=== PATIENT | male | born 1975 ===

== ENCOUNTER 2017-11-20 09:44 | Observation (INO) | payer BC ==
[2017-11-20] MEDS ORDERED: Iohexol 240 (50 ml) PO ONE (10:21)
[2017-11-20] MEDS ORDERED: Sodium Chloride 0.9% 1,000 ML IV STA (10:22)
[2017-11-20] MEDS ORDERED: Iohexol 240 (50 ml) ONE (10:33)
--- NOTE | 2017-11-20 10:58 | ED PDOC ---
HPI: Abdomen Time Seen by Provider: 11/20/17 10:15 Chief Complaint (Nursing): Abdominal Pain Chief Complaint (Provider): abdominal pain nausea diarrhea History Per: Patient History/Exam Limitations: no limitations Onset/Duration Of Symptoms: Days (3) Current Symptoms Are (Timing): Still Present Location Of Pain/Discomfort: Diffuse Quality Of Discomfort: Sharp Associated Symptoms: Nausea, Vomiting, Diarrhea, Loss Of Appetite Exacerbating Factors: None Alleviating Factors: None Last Bowel Movement: Today Additional Complaint(s): 42yo male history significant for familial mediterreran fever, presents w return of abdominal pain sharp, diffuse associated a nausea and diarrhea ongoing for 3 days. Denies recent attack of FMF, was supposed to be taking colchicine but admits noncompliance- has full bottle of pills with him filled jun 2016. Denies BRBPR or hematemesis. PMD- denies having current PMD Past Medical History Reviewed: Historical Data, Nursing Documentation, Vital Signs Vital Signs: Last Vital Signs Temp 99.1 F 11/22/17 08:30 Pulse 71 11/22/17 08:30 Resp 20 11/22/17 08:30 BP 123/81 11/22/17 08:30 Pulse Ox 100 11/22/17 08:30 - Medical History Other PMH: FMF - Surgical History Surgical History: Appendectomy, Endoscopy (x2) Other surgeries: partial small bowel resection and several diagnostic laproscopies - Family History Family History: States: Unknown Family Hx - Social History Current smoker - smoking cessation education provided: Yes Alcohol: Social Drugs: Denies - Home Medications Home Medications: Ambulatory Orders Medication Instructions Recorded Colchicine [Mitigare] 0.6 mg PO Q12 #30 capsule 11/22/17 Dicyclomine [Bentyl] 10 mg PO QID PRN #20 cap 11/22/17 Famotidine [Pepcid] 20 mg PO BID #60 tab 11/22/17 Ondansetron ODT [Zofran ODT] 4 mg PO Q8H PRN #20 odt 11/22/17 - Allergies Allergies/Adverse Reactions: Allergies Allergy/AdvReac Type Severity Reaction Status Date / Time No Known Allergies Allergy Verified 03/12/16 15:24 Review of Systems ROS Statement: Except As Marked, All Systems Reviewed And Found Negative Constitutional: Negative for: Fever Cardiovascular: Negative for: Chest Pain Respiratory: Negative for: Cough, Shortness of Breath Gastrointestinal: Positive for: Nausea, Vomiting, Abdominal Pain, Diarrhea Genitourinary Male: Negative for: Dysuria Musculoskeletal: Negative for: Neck Pain Skin: Negative for: Rash, Lesions Neurological: Positive for: Headache, Dizziness. Negative for: Weakness Psych: Negative for: Suicidal ideation Physical Exam - Reviewed Nursing Documentation Reviewed: Yes Vital Signs Reviewed: Yes - Physical Exam Appears: Positive for: Non-toxic, Uncomfortable Head Exam: Positive for: ATRAUMATIC, NORMAL INSPECTION, NORMOCEPHALIC Skin: Positive for: Normal Color, Warm, DRY Eye Exam: Positive for: EOMI, Normal appearance, PERRL ENT: Positive for: Normal ENT Inspection Neck: Positive for: Normal, Painless ROM Cardiovascular/Chest: Positive for: Regular Rate, Rhythm Respiratory: Positive for: CNT, Normal Breath Sounds Gastrointestinal/Abdominal: Positive for: Soft, Tenderness (diffuse tenderness inferior midline incisional scar), Guarding Back: Positive for: Normal Inspection Extremity: Positive for: Normal ROM Neurologic/Psych: Positive for: Alert, Oriented. Negative for: Motor/Sensory Deficits - Laboratory Results Result Diagrams: 11/22/17 06:42 11/22/17 06:42 - ECG O2 Sat by Pulse Oximetry: 100 Medical Decision Making Medical Decision Making: workup for acute abdomen / SBO vs return of FMF labs, CT abd pelv and IVF, toradol, antiemetic ordered labs reveal elev WBC chem unremarkable CT: Accession No. : [id number] Patient Name / ID : ISHA ESPARZA / [id number] Exam Date : 11/20/2017 13:54:44 ( Approved ) Study Comment : Sex / Age : M / 42Y Creator : Sumi Smalls Dictator : Sumi Smalls Palletiser Operator : Phlebotomy Technologist : Sumi Smalls Approver2 : Report Date : 11/20/2017 14:45:29 My Comment : PROCEDURE: CT Abdomen and Pelvis with contrast HISTORY: abdominal pain COMPARISON: CT abdomen and pelvis 12/22/2010 images without report available to me at this time TECHNIQUE: Contrast dose: 95 mL Omnipaque 3 high Radiation dose: Total exam DLP = 533 mGy-cm. This CT exam was performed using one or more of the following dose reduction techniques: Automated exposure control, adjustment of the mA and/or kV according to patient size, and/or use of iterative reconstruction technique. FINDINGS: LOWER THORAX: Unremarkable. LIVER: Unremarkable. No gross lesion or ductal dilatation. GALLBLADDER AND BILE DUCTS: Unremarkable. PANCREAS: Unremarkable. No gross lesion or ductal dilatation. SPLEEN: Unremarkable. ADRENALS: Unremarkable. No mass. KIDNEYS AND URETERS: Unremarkable. No hydronephrosis. No solid mass. VASCULATURE: Unremarkable. No aortic aneurysm. BOWEL: Unremarkable. No obstruction. No gross mural thickening. APPENDIX: The appendix is not identify with certainty. No pericecal inflammatory changes noted. There are some right sided punctate calcifications punctate hyperdensity which appear to be similar to those noted on the 2011 study. Some of these may represent phleboliths. No obstructing urolithiasis suggested. PERITONEUM: Unremarkable. No free fluid. No free air. LYMPH NODES: Unremarkable. No enlarged lymph nodes. BLADDER: Unremarkable. REPRODUCTIVE: Unremarkable. BONES: No acute fracture. OTHER FINDINGS: None. IMPRESSION: Nonvisualized appendix. No pericecal inflammatory changes. Correlate clinically. Otherwise unremarkable contrast enhanced CT of the abdomen and pelvis. patient still w discomfort. Place Obs med surg for further workup. Colchicine initiated. Disposition - Clinical Impression Clinical Impression: Abdominal pain, Familial Mediterranean fever - Patient ED Disposition Is Patient to be Admitted: Yes - Disposition Disposition Time: 12:45 Condition: FAIR - Pt Status Changed To: Hospital Disposition Of: Inpatient - Admit Certification Admit to Inpatient:: After my assessment, the patient will require hospitalization for at least two midnights. This is because of the severity of symptoms shown, intensity of services needed, and/or the medical risk in this patient being treated as an outpatient. - POA Present On Arrival: None
[2017-11-20 11:06] LABS: BASO # 0.2 K/uL (0.0-0.2); BASO % 0.8 % (0.0-2.0); EOS # 0.6 K/uL (0.0-0.7); EOS % 3.2 % (0.0-4.0); HEMOGLOBIN 15.9 g/dL (12.0-18.0); LYMPH % 10.4 % (20.0-40.0); MEAN CELL VOLUME 80.5 fl (80.0-94.0); MEAN CORPUSCULAR HGB CONC 33.5 g/dL (33.0-37.0); MONO # 1.4 K/uL (0.0-0.8); MONO % 7.5 % (0.0-10.0); NEUT # 14.7 K/uL (1.8-7.0); NEUT % 78.1 % (50.0-75.0); RBC 5.89 Mil/uL (4.40-5.90); RED CELL DISTRIBUTION WIDTH 13.9 % (11.5-14.5); WHITE BLOOD COUNT 18.9 K/uL (4.8-10.8)
[2017-11-20 11:15] LABS: INR 1.1 (0.9-1.2); PROTHROMBIN TIME 11.7 Seconds (9.8-13.1); SQUAMOUS EPITHIAL < 1 /hpf (0-5); URINE BILIRUBIN NEGATIVE (NEGATIVE); URINE BLOOD SMALL (NEGATIVE); URINE CLARITY SLIGHTY-CLOUDY (Clear); URINE COLOR YELLOW (YELLOW); URINE GLUCOSE (UA) NEG (Normal); URINE LEUKOCYTE ESTERASE NEG Leu/uL (Negative); URINE PROTEIN 30 mg/dL (NEGATIVE); URINE UROBILINOGEN 0.2-1.0 mg/dL (0.2-1.0)
[2017-11-20 11:19] LABS: ALBUMIN 4.1 g/dL (3.5-5.0); ALT/SGPT 30 U/L (21-72); AST/SGOT 28 U/L (17-59); BLOOD UREA NITROGEN 11 mg/dl (9-20); CALCIUM 9.1 mg/dL (8.4-10.2); GFR AFRICAN-AMERICAN > 60; GFR NON-AFRICAN AMERICAN > 60; LIPASE 41 U/L (23-300); URIC ACID 6.2 mg/Dl (3.5-8.5)
[2017-11-20] MEDS ORDERED: Morphine 4 MG/ML VIAL ONE (12:22)
[2017-11-20] MEDS ORDERED: Morphine 4 MG/ML VIAL IV STA (12:23)
--- NOTE | 2017-11-20 12:36 | RAD ---
HISTORY: SOB COMPARISON: No prior. FINDINGS: LUNGS: No active pulmonary disease. PLEURA: No significant pleural effusion identified, no pneumothorax apparent. CARDIOVASCULAR: Normal. OSSEOUS STRUCTURES: No significant abnormalities. VISUALIZED UPPER ABDOMEN: Normal. OTHER FINDINGS: None. IMPRESSION: No active disease.
[2017-11-20] MEDS ORDERED: Iohexol 300 100 ML IJ ONE (13:49)
[2017-11-20] MEDS ORDERED: Sodium Chloride 0.9% 50 ML IV ONE (13:50)
--- NOTE | 2017-11-20 14:47 | CT ---
PROCEDURE: CT Abdomen and Pelvis with contrast HISTORY: abdominal pain COMPARISON: CT abdomen and pelvis 12/22/2010 images without report available to me at this time TECHNIQUE: Contrast dose: 95 mL Omnipaque 3 high Radiation dose: Total exam DLP = 533 mGy-cm. This CT exam was performed using one or more of the following dose reduction techniques: Automated exposure control, adjustment of the mA and/or kV according to patient size, and/or use of iterative reconstruction technique. FINDINGS: LOWER THORAX: Unremarkable. LIVER: Unremarkable. No gross lesion or ductal dilatation. GALLBLADDER AND BILE DUCTS: Unremarkable. PANCREAS: Unremarkable. No gross lesion or ductal dilatation. SPLEEN: Unremarkable. ADRENALS: Unremarkable. No mass. KIDNEYS AND URETERS: Unremarkable. No hydronephrosis. No solid mass. VASCULATURE: Unremarkable. No aortic aneurysm. BOWEL: Unremarkable. No obstruction. No gross mural thickening. APPENDIX: The appendix is not identify with certainty. No pericecal inflammatory changes noted. There are some right sided punctate calcifications punctate hyperdensity which appear to be similar to those noted on the 2011 study. Some of these may represent phleboliths. No obstructing urolithiasis suggested. PERITONEUM: Unremarkable. No free fluid. No free air. LYMPH NODES: Unremarkable. No enlarged lymph nodes. BLADDER: Unremarkable. REPRODUCTIVE: Unremarkable. BONES: No acute fracture. OTHER FINDINGS: None. IMPRESSION: Nonvisualized appendix. No pericecal inflammatory changes. Correlate clinically. Otherwise unremarkable contrast enhanced CT of the abdomen and pelvis.
[2017-11-20] MEDS ORDERED: COLCHICINE 0.6 MG CAPSULE PO ONE (14:56)
--- NOTE | 2017-11-20 15:55 | CP.PCM.HP ---
History of Present Illness - History of Present Illness History of Present Illness: 42 yr old M presented to ED with complaint of worsening severe abdominal pain x 3 days. Associated symptoms are nausea and diarrhea. PMHx includes Familial Mediterranean Fever with last exacerbation 2 yrs ago. Denies fevers, vomiting, chills, SOB, weakness, dizziness. Patient reports he has not been compliant with his Colchicine 0.6mg PO BID, he does not have a PMD and has not followed up with GI. Reports he last saw a physician assigned to him at his job fro right shoulder injury (workers comp). PMD: none Specialists: none PMHx: Familial Mediterranean Fever s/p colon resection SurgHx: colon resection, several diagnostic laparoscopies, appendectomy, right shoulder labrum repair/arthroscopy FMHx: mother at 48 yrs old from stomach cancer, father hx unknown SocHx: tobacco use 10 cig daily x 17 yrs, occasional Etoh, denies drugs Medications: noncompliant with colchicine 0.6mg PO BID Allergies: NKDA ED course: BP 131/81 mmHg, HR 75 bpm, Resp 20, O2 sat 100% on room air, Temp 98.1 F -CXR: no active disease -CT Abd/pelvis: Nonvisualized appendix, no pericecal inflammatory changes, unremarkable. -CBC: WBC 18.9, H/H 15.9/47.4, plts 236, no left shift -PT 11.7, PTT 42, INR 1.1, -CMP Na 142, K+ 4.4, Cl 106, HCO3 26, anion gap 14, BUN 11, Cr 1.3 -AST 28, ALT 30, lipase 41 -urinalysis: small blood -Urine toxicology positive for opiates -ED treatment: Dilaudid 0.5mg IVP once, Toradol 15 mg IVP once, Morphine 4mg IVP once, Morphine 2mg IVP once, 1L NS bolus, Zofran 4mg IV once Present on Admission - Present on Admission Any Indicators Present on Admission: No History of DVT/PE: No History of Uncontrolled Diabetes: No Urinary Catheter: No Decubitus Ulcer Present: No History Surgical Site Infection Following: None Review of Systems - Constitutional Constitutional: absent: Chills, Weakness - EENT Eyes: absent: Change in Vision Nose/Mouth/Throat: absent: Sore Throat - Cardiovascular Cardiovascular: absent: Chest Pain, Dyspnea - Respiratory Respiratory: absent: Cough, Dyspnea, Hemoptysis - Gastrointestinal Gastrointestinal: Abdominal Pain (diffuse), Diarrhea, Nausea, Vomiting - Genitourinary Genitourinary: absent: Difficulty Urinating, Dysuria - Musculoskeletal Musculoskeletal: absent: Muscle Weakness - Neurological Neurological: absent: Confusion, Weakness - Endocrine Endocrine: absent: Fatigue, Polydipsia, Polyphagia, Polyuria - Hematologic/Lymphatic Hematologic: absent: Easy Bleeding, Easy Bruising Past Patient History - Past Social History Alcohol: Social Drugs: Denies - ENDOCRINE/METABOLIC Hx Endocrine Disorders: Yes Other/Comment: Familial mediterranean fever - GASTROINTESTINAL Other/Comment: Partial colonectomy - PSYCHIATRIC Hx Substance Use: No - SURGICAL HISTORY Hx Appendectomy: Yes - ANESTHESIA Hx Anesthesia: Yes Hx Anesthesia Reactions: No Meds Allergies/Adverse Reactions: Allergies Allergy/AdvReac Type Severity Reaction Status Date / Time No Known Allergies Allergy Verified 03/12/16 15:24 Physical Exam - Constitutional Appears: No Acute Distress - Eye Exam Eye Exam: EOMI, PERRL - ENT Exam ENT Exam: Mucous Membranes Moist - Neck Exam Neck exam: Positive for: Full Rom. Negative for: Lymphadenopathy - Respiratory Exam Respiratory Exam: Clear to Auscultation Bilateral, NORMAL BREATHING PATTERN - Cardiovascular Exam Cardiovascular Exam: REGULAR RHYTHM, +S1, +S2 - GI/Abdominal Exam GI & Abdominal Exam: Normal Bowel Sounds, Soft, Tenderness (diffuse) - Extremities Exam Extremities exam: Positive for: full ROM. Negative for: pedal edema - Back Exam Back exam: absent: CVA tenderness (L), CVA tenderness (R) - Neurological Exam Neurological exam: Alert, CN II-XII Intact (grossly intact), Oriented x3 - Psychiatric Exam Psychiatric exam: Normal Affect, Normal Mood - Skin Skin Exam: Dry, Normal Color, Warm Results - Vital Signs Recent Vital Signs: Last Vital Signs Temp 98.1 F 11/20/17 09:51 Pulse 75 11/20/17 09:51 Resp 20 11/20/17 09:51 BP 131/81 11/20/17 09:51 Pulse Ox 100 11/20/17 14:59 - Labs Result Diagrams: 11/20/17 11:02 11/20/17 11:02 Labs: Laboratory Results - last 24 hr 11/20/17 11/20/17 11/20/17 11:02 11:02 11:02 WBC 18.9 H RBC 5.89 Hgb 15.9 Hct 47.4 MCV 80.5 MCH 27.0 MCHC 33.5 RDW 13.9 Plt Count 236 MPV 10.0 Neut % (Auto) 78.1 H Lymph % (Auto) 10.4 L Ness % (Auto) 7.5 Eos % (Auto) 3.2 Baso % (Auto) 0.8 Neut # (Auto) 14.7 H Lymph # (Auto) 2.0 Ness # (Auto) 1.4 H Eos # (Auto) 0.6 Baso # (Auto) 0.2 PT 11.7 INR 1.1 APTT 42.0 H Sodium 142 Potassium 4.4 Chloride 106 Carbon Dioxide 26 Anion Gap 14 BUN 11 Creatinine 1.3 Est GFR ( Amer) > 60 Est GFR (Non-Af Amer) > 60 Random Glucose 111 H Uric Acid 6.2 Calcium 9.1 Total Bilirubin 0.8 AST 28 ALT 30 Alkaline Phosphatase 77 Total Protein 8.1 Albumin 4.1 Globulin 4.0 H Albumin/Globulin Ratio 1.0 Lipase 41 Urine Color Urine Clarity Urine pH Ur Specific [place] Urine Protein Urine Glucose (UA) Urine Ketones Urine Blood Urine Nitrate Urine Bilirubin Urine Urobilinogen Ur Leukocyte Esterase Urine RBC (Auto) Urine Microscopic WBC Ur Squamous Epith Cells 11/20/17 11:02 WBC RBC Hgb Hct MCV MCH MCHC RDW Plt Count MPV Neut % (Auto) Lymph % (Auto) Ness % (Auto) Eos % (Auto) Baso % (Auto) Neut # (Auto) Lymph # (Auto) Ness # (Auto) Eos # (Auto) Baso # (Auto) PT INR APTT Sodium Potassium Chloride Carbon Dioxide Anion Gap BUN Creatinine Est GFR ( Amer) Est GFR (Non-Af Amer) Random Glucose Uric Acid Calcium Total Bilirubin AST ALT Alkaline Phosphatase Total Protein Albumin Globulin Albumin/Globulin Ratio Lipase Urine Color Yellow Urine Clarity Slighty-cloudy Urine pH 5.0 Ur Specific [place] 1.030 Urine Protein 30 Urine Glucose (UA) Neg Urine Ketones Negative Urine Blood Small Urine Nitrate Negative Urine Bilirubin Negative Urine Urobilinogen 0.2-1.0 Ur Leukocyte Esterase Neg Urine RBC (Auto) 8 H Urine Microscopic WBC 1 Ur Squamous Epith Cells < 1 Assessment & Plan - Assessment and Plan (Free Text) Assessment: 42 yr old M admitted for intractable abdominal pain with PMHx Familial Mediterranean Fever Plan: -Admit to med/surg -pain management -NPO, IV fluids -GI consult: Dr. Feliciano, will follow recommendations -Zofran PRN -Lovenox 40mg SC QD -Colchicine 0.6mg PO Q12 -Pantoprazole 40 mg PO QD - Date & Time Date: 11/20/17 Time: 15:55
[2017-11-20] MEDS ORDERED: HYDROmorphone 0.5 mg/0.5 ml ISec IVP STA (17:13)
[2017-11-20] MEDS ORDERED: HYDROmorphone 0.5 mg/0.5 ml ISec ONE (17:32)
[2017-11-20] MEDS: Dextrose 5%/0.45% NS 1,000 ML IV SCH (17:33)
[2017-11-20] MEDS ORDERED: Pneumococcal 23-Valent Vaccine IM ONE (20:00)
[2017-11-21] MEDS: Dextrose 5%/0.45% NS 1,000 ML IV SCH ×3 (04:38→20:29)
[2017-11-21 06:57] LABS: BENZODIAZEPINES, UR NEGATIVE (NEGATIVE); OPIATES, UR POSITIVE (NEGATIVE); PHENCYCLIDINE, UR NEGATIVE (NEGATIVE)
[2017-11-21 07:13] LABS: BARBITURATES, UR NEGATIVE (NEGATIVE)
[2017-11-21] MEDS: Pantoprazole 40 mg EC Tab PO SCH (08:53)
[2017-11-21] MEDS: Enoxaparin 40 mg Syringe SC SCH (08:53)
[2017-11-21] MEDS ORDERED: COLCHICINE 0.6 MG CAPSULE PO SCH (10:15)
--- NOTE | 2017-11-21 11:08 | CP.PCM.PN ---
Subjective - Date & Time of Evaluation Date of Evaluation: 11/21/17 Time of Evaluation: 08:10 - Subjective Subjective: Patient seen and examined at bedside with Dr. Gonzalez. Reports abdominal pain persists, has an appetite. Denies fevers/chills/nausea/vomiting or diarrhea. Objective - Vital Signs/Intake and Output Vital Signs (last 24 hours): Temp Pulse Resp BP Pulse Ox 98.5 F 68 20 122/78 99 11/21/17 08:49 11/21/17 08:49 11/21/17 08:49 11/21/17 08:49 11/21/17 08:49 - Medications Medications: Current Medications Acetaminophen (Tylenol 325mg Tab) 975 mg PO Q6 PRN PRN Reason: Pain, moderate (4-7) Colchicine (Colchicine) 0.6 mg PO Q12 ODALIS Enoxaparin Sodium (Lovenox) 40 mg SC DAILY ODALIS PRN Reason: Protocol Last Admin: 11/21/17 08:53 Dose: 40 mg Dextrose/Sodium Chloride (Dextrose 5%/0.45% Ns 1000 Ml) 1,000 mls @ 100 mls/hr IV .Q10H ODALIS Stop: 11/22/17 10:06 Ketorolac Tromethamine (Toradol) 30 mg IVP Q6 PRN PRN Reason: Pain, severe (8-10) Last Admin: 11/21/17 08:24 Dose: 30 mg Ondansetron HCl (Zofran Odt) 4 mg PO Q8H PRN PRN Reason: Nausea/Vomiting Ondansetron HCl (Zofran Inj) 4 mg IVP Q4 PRN PRN Reason: Nausea/Vomiting Last Admin: 11/21/17 08:23 Dose: 4 mg Pantoprazole Sodium (Protonix Ec Tab) 40 mg PO DAILY [facility] Last Admin: 11/21/17 08:53 Dose: 40 mg - Labs Labs: 11/20/17 11:02 11/20/17 11:02 PT 11.7 Seconds (9.8-13.1) 11/20/17 11:02 INR 1.1 (0.9-1.2) 11/20/17 11:02 APTT 42.0 Seconds (25.6-37.1) H 11/20/17 11:02 - Constitutional Appears: No Acute Distress - Eye Exam Eye Exam: Normal appearance - ENT Exam ENT Exam: Mucous Membranes Moist - Respiratory Exam Respiratory Exam: NORMAL BREATHING PATTERN - Cardiovascular Exam Cardiovascular Exam: REGULAR RHYTHM - GI/Abdominal Exam GI & Abdominal Exam: Normal Bowel Sounds - Neurological Exam Neurological Exam: Alert, Awake, CN II-XII Intact (grossly intact), Oriented x3 - Psychiatric Exam Psychiatric exam: Normal Affect, Normal Mood - Skin Skin Exam: Dry, Warm Assessment and Plan - Assessment and Plan (Free Text) Assessment: 42 yr old M admitted for intractable abdominal pain with PMHx Familial Mediterranean Fever Plan: -continue current management -pain management -liquid diet, advance as tolerated -GI consult: Dr. Feliciano, will follow recommendations -Zofran PRN -Lovenox 40mg SC QD -Colchicine 0.6mg PO Q12 -Pantoprazole 40 mg PO QD
[2017-11-21 11:35] LABS: HEMOGLOBIN 14.5 g/dL (12.0-18.0); MEAN CELL VOLUME 80.3 fl (80.0-94.0); MEAN CORPUSCULAR HEMOGLOBIN 26.5 pg (27.0-31.0); MEAN CORPUSCULAR HGB CONC 32.9 g/dL (33.0-37.0); RBC 5.46 Mil/uL (4.40-5.90); RED CELL DISTRIBUTION WIDTH 14.2 % (11.5-14.5); WHITE BLOOD COUNT 18.4 K/uL (4.8-10.8)
[2017-11-21 11:44] LABS: BLOOD UREA NITROGEN 12 mg/dl (9-20); CALCIUM 8.2 mg/dL (8.4-10.2); GFR AFRICAN-AMERICAN > 60; GFR NON-AFRICAN AMERICAN > 60
[2017-11-21 23:49] VITALS: RESP 20; O2SAT 100
[2017-11-22] MEDS: Dextrose 5%/0.45% NS 1,000 ML IV SCH (03:51)
[2017-11-22 06:59] LABS: HEMOGLOBIN 13.9 g/dL (12.0-18.0); MEAN CELL VOLUME 80.9 fl (80.0-94.0); MEAN CORPUSCULAR HEMOGLOBIN 26.7 pg (27.0-31.0); RBC 5.19 Mil/uL (4.40-5.90); WHITE BLOOD COUNT 15.6 K/uL (4.8-10.8)
[2017-11-22 07:01] LABS: BLOOD UREA NITROGEN 11 mg/dl (9-20); CALCIUM 8.4 mg/dL (8.4-10.2); GFR AFRICAN-AMERICAN > 60; GFR NON-AFRICAN AMERICAN > 60
[2017-11-22] MEDS ORDERED: Metoclopramide 10 mg/10 ml Cup PO ONE (08:16)
[2017-11-22 08:31] VITALS: BP 123/81; PULSE 71; TEMP 99.1
[2017-11-22] MEDS: Pantoprazole 40 mg EC Tab PO SCH (08:31)
[2017-11-22] MEDS: Enoxaparin 40 mg Syringe SC SCH (08:31)
[2017-11-22 12:28] VITALS: BMI 27.8
--- NOTE | 2017-11-22 13:48 | PN ---
DATE: 11/22/2017 SUBJECTIVE: The patient is seen and examined. Interim events noted. Consult noted and appreciated. Gastroenterology interventions noted and appreciated. The patient remains in regular medical floor. The patient still complains of abdominal pain, lot of gas and acidity. PHYSICAL EXAMINATION: GENERAL: The patient is in no acute distress. VITAL SIGNS: Stable. HEART: S1, S2, normal and regular. LUNGS: Good bilateral air exchange. ABDOMEN: Soft and nontender. Abdominal exam does not reveal any sign of acute abdomen. No guarding, no rigidity, no rebound. Bowel sounds are plus and normal. EXTREMITIES: No edema, no calf swelling. No tenderness. No acute ischemia. SUPERVISOR EDUCATION: Exam is essentially unchanged. DIAGNOSTIC DATA: Available diagnostic data reviewed. ASSESSMENT AND PLAN: Overall, the patient is medically stable. Plan as ordered. Santo Gonzalez MD
--- NOTE | 2017-11-23 06:09 | CON ---
DATE: 11/21/2017 REFERRING DOCTOR: Dr. Curtis. REASON FOR CONSULTATION: Abdominal pain. HISTORY OF PRESENT ILLNESS: This is a pleasant 42-year-old man with a history of familial Mediterranean fever who is noncompliant with his medications. Has not had a flare in apparently 10 years as per the patient. Now complains for repeat exacerbation with pain, nausea, vomiting, discomfort, and diarrhea, all of which is resolving but still having pain. PAST MEDICAL HISTORY: As above. SURGICAL HISTORY: As above. MEDICATIONS: Have been reviewed. REVIEW OF SYSTEMS: All other systems have been reviewed and negative apart from the HPI. PHYSICAL EXAMINATION: VITAL SIGNS: Here in the hospital, grossly unremarkable. GENERAL: A pleasant middle-aged male, lying in bed comfortably, and in no apparent distress. HEENT: Head is normocephalic and atraumatic. Eyes: Pupils are equally reactive to light bilaterally. No conjunctival pallor or icterus. NECK: Supple. Normal range of motion. No lymphadenopathy appreciated. LUNGS: Coarse breath sounds bilaterally. HEART: S1, S2. Regular rate and rhythm. No murmurs appreciated. ABDOMEN: Soft and nontender. Bowel sounds are present. No rebound. No guarding. RECTAL: Deferred. EXTREMITIES: Pulses felt bilaterally. SKIN: Warm, dry and intact. NEUROLOGIC: A and O x3. LABORATORY DATA: All labs and radiology have been reviewed. CAT scan is grossly unremarkable. Labs include WBC of 18.4, hemoglobin 14.5, hematocrit of 42.9. ESR 27, INR 1.1. CRP of 55. LFTs are essentially unremarkable. ASSESSMENT AND PLAN: This is a 42-year-old man with familial Mediterranean fever, having exacerbation. From GI standpoint, I follow up with the specialist. We start colchicine at 0.6 mg b.i.d. Follow up with me or primary care team for labs including the CBC and chemistry. We will check creatinine function upon discharge. Discharge planning when tolerating diet. Thank you for the consult. Rob Feliciano MD/ PhD cc: Dr. Curtis.
== END 2017-11-22 15:50 | disposition home or self-care (01) ==
LOC: H.ER 09:44 → H.ERHOLD 14:57 → H.MEDSURG1 18:10
PROVIDERS: ADMIT Internal Medicine; ATTEND Internal Medicine
DX: M04.1 Periodic fever syndromes (principal); Z23 Encounter for immunization; Z91.14 Patient's other noncompliance with medication regimen; F17.200 Nicotine dependence, unspecified, uncomplicated
CPT/HCPCS: 36415; 71045; 74177; 80048; 80053; 81003; 83690; 84550; 85025; 85027; 85610; 85651; 85730; 86140; 90732; 96372; 96374; 96375; 96376; 99285; G0009; G0378; G0480; J1170; J1650; J1885; J2270; J2405; J7030; J7042; Q9966; Q9967